=== PATIENT | female | born 1985 | race Caucasian/White ===

== ENCOUNTER 2016-07-16 21:25 | Emergency (ER) | payer MEDICAID, OTHER ==
[~2016-07-16] VITALS: Ht 160 cm; Wt 59.5 kg
[~2016-07-16 21:25] MED LIST: PREN1TAB49 PO
[2016-07-16 21:30] VITALS: Ht 160 cm; Wt 59.5 kg
[2016-07-16] MEDS ORDERED: AMO500 PO (21:40)
[2016-07-16] MEDS ORDERED: IBUP-1542 PO (21:40)
[2016-07-16] MEDS ORDERED: BENZ100C70 PO (21:41)
--- NOTE | 2016-07-16 21:46 | ERD ---
ER Documentation Chief Complaint Date/Time DATE: 07/16/16 TIME: 21:[address] x1 week HPI Patient is a 31-year-old female who presents to the ED with sore throat, mild cough and congestion 1 week. She states that she has pain when she swallows however she does not state that she has difficulty breathing. No tongue or lip swelling. No chest pain, shortness of breath or difficulty breathing. No leg pain or leg swelling. No recent travel or recent surgeries. She has been taking Motrin for her symptoms which is helped minimally with her pain. Denies fever or chills. Denies sick contacts. No other complaints. ROS All systems reviewed and are negative except as per history of present illness. Medications Home Meds Active Scripts Benzonatate* (Tessalon Perle*) 100 Mg Capsule, 100 MG PO Q8H Y for COUGH for 14 Days, CAP Prov:CLAUDY GOODWIN PA-C 07/16/16 Ibuprofen* (Motrin*) 600 Mg Tab, 600 MG PO Q6, #30 TAB Prov:JOSÉ ANTONIOTACLAUDY HAMM PA-C 07/16/16 Amoxicillin* (Amoxicillin*) 500 Mg Cap, 500 MG PO BID for 10 Days, CAP Prov:SHOMIKYTARIANLINWOODAZ PA-C 07/16/16 Reported Medications Vits W-Ca,Fe,Fa(<1MG) () 1 Tab Tablet, 1 TAB PO DAILY 02/05/12 Allergies Allergies: Coded Allergies: No Known Allergies (Verified Allergy, 02/06/12) Uncoded Allergies: NKDA (Allergy, 02/05/12) PMhx/Soc History of Surgery: No Anesthesia Reaction: No Hx Neurological Disorder: No Hx Respiratory Disorders: No Hx Cardiac Disorders: No Hx Psychiatric Problems: No Hx Miscellaneous Medical Probl: No Hx Alcohol Use: No Hx Substance Use: No Hx Tobacco Use: No Smoking Status: Never smoker FmHx Family History: No coronary disease, No diabetes, No other Physical Exam Vitals Vital Signs Date Time Temp Pulse Resp B/P Pulse Ox O2 Delivery O2 Flow Rate FiO2 07/16/16 21:30 97.4 80 20 122/83 100 Physical Exam GENERAL: Well-developed, well-nourished female. Appears in no acute distress. HEAD: Normocephalic, atraumatic. EYES: Pupils are equally reactive bilaterally. EOMs grossly intact. No conjunctival erythema. ENT: Moist mucous membranes. No uvula deviation. No kissing tonsils. No exudates. Erythematous throat with no exudates. NECK: Supple. No lymphadenopathy or thyromegaly. No meningismus. negative kernig. negative brudinski. LUNG: Clear to auscultation bilaterally. No rhonchi, wheezing, rales or coarse breath sounds. HEART: Regular rate and rhythm. No murmurs, rubs or gallops. Extremities: Equal pulses bilaterally. No peripheral clubbing, cyanosis or edema. No unilateral leg swelling. NEUROLOGIC: Alert and oriented. Moving all four extremities. 5/5 strength in all extremities. Normal speech. Steady gait. SKIN: Normal color. Warm and dry. No rashes or lesions. Capillary refill < 2 seconds Procedures/MDM ER COURSE: I kept the patient and/or family informed of laboratory and diagnostic imaging results throughout the emergency room course. MEDICAL DECISION MAKING: This is a 31-year-old female who presents with sore throat 1 week. Vital signs were reviewed. Patient is afebrile. Patient is not hypoxic. Patient is not toxic or ill-appearing. Patient likely has pharyngitis of bacterial versus viral etiology. Low suspicion for peritonsillar abscess, mononucleosis, dental abscess Low suspicion for pneumonia, PE, pneumothorax, ACS, epiglottitis, obstruction, TB, pertussis, meningitis, sepsis. DISCHARGE: At this time, patient is stable for discharge and outpatient management with no new complaints during the ER course. Patient was sent home with amoxicillin, Motrin and Tessalon Perles. Patient will be discharged home with instructions to recheck for new or worsening symptoms such as fever, nausea, weakness, LOC and to follow up with primary care in the next 1-2 days. Patient was advised to return to the ER for any new or worsening symptoms. Plan was discussed and patient and/or family understands and agrees. Home instructions were given. Departure Diagnosis: Primary Impression: Sore throat Patient Instructions: When You Have a Sore Throat Additional Instructions: Call your primary care doctor TOMORROW for an appointment during the next 1-2 days.See the doctor sooner or return here if your condition worsens before your appointment time. CLAUDY GOODWIN PA-C Jul 16, 2016 21:46
== END 2016-07-16 21:41 | disposition home or self-care (01) ==
LOC: E/R 21:25
DX: J02.9 Acute pharyngitis, unspecified (principal)
CPT/HCPCS: 99284

== ENCOUNTER 2017-09-18 23:24 | Emergency (ER) | END 2017-09-19 01:15 | disposition home or self-care (01) ==